=== PATIENT | female | born 1975 | race Caucasian/White ===

== ENCOUNTER 2020-02-12 17:47 | Emergency (ER) | payer MEDICARE ==
[~2020-02-12] VITALS: Ht 177.8 cm; Wt 122.7 kg
[2020-02-12 17:52] VITALS: BP 171/80; Ht 177.8 cm; Wt 122.7 kg
[2020-02-12 18:46] LABS: BASOPHILS 0.3 % (0-2); HEMOGLOBIN 8.4 g/dL (12-16); IMMATURE GRANULOCYTES 0.1 % (0-5); LYMPHOCYTES 31.7 % (15-50); MCH 20.3 pg (26.0-34.0); MCV 72.6 fL (80.0-100.0); MONOCYTES 5.8 % (2-11); NEUTROPHILS 57.1 % (40-80); PLATELET COUNT 233 10x3/uL (130-400); RBC 4.13 10x6/uL (4.00-5.40); RDW 19.2 % (11.5-14.5); WBC 7.3 10x3/uL (4.8-10.8)
[2020-02-12 18:49] LABS: MEAN PLATELET VOLUME 0 fL (7.4-10.4)
[2020-02-12 18:58] LABS: CALC OSMOLALITY 281 mosm/kg (275-300); CALCIUM 8.1 mg/dL (8.5-10.1); CARBON DIOXIDE 24.4 mmol/L (21.0-32.0); CHLORIDE - SERUM 110 mmol/L (98-107); CREATININE - SERUM 0.8 mg/dL (0.6-1.3); GLUCOSE 88 mg/dL (74-106); POTASSIUM - SERUM 3.4 mmol/L (3.5-5.1); SODIUM 142 mmol/L (136-145); UREA NITROGEN 13 mg/dL (7-18); eGFR NON AFRICAN AMERICAN 83 mL/min (90-120)
[2020-02-12 19:05] LABS: ALBUMIN 3.5 g/dL (3.4-5.0); ALKALINE PHOSPHATASE 146 U/L (30-120); ALT (SGPT) 23 U/L (10-68); AMYLASE - SERUM 25 U/L (25-115); BILIRUBIN - TOTAL 0.13 mg/dL (0.2-1.3); LIPASE 101 U/L (73-393); PROTEIN - SERUM 6.9 g/dL (6.4-8.2); TROPONIN-I < 0.017 ng/mL (0.000-0.060)
[2020-02-12] MEDS ORDERED: LYRICA75 MG PO (19:44)
[2020-02-12] MEDS ORDERED: TOPAMAX100 MG PO (19:45)
[2020-02-12] MEDS ORDERED: NEURONTIN 300300 MG PO (19:45)
[2020-02-12] MEDS ORDERED: KEPPRA750 MG PO (19:45)
[2020-02-12] MEDS ORDERED: LIPITOR80 MG PO (19:45)
[2020-02-12] MEDS ORDERED: OMEPRAZOLE40 MG PO (19:46)
[2020-02-12] MEDS ORDERED: BENTYL10 MG PO (19:46)
[2020-02-12] MEDS ORDERED: BUTALB-APAP-CA1 EACH (19:46)
[2020-02-12] MEDS ORDERED: ZOFRAN4 MG (19:46)
[2020-02-12] MEDS ORDERED: XANAX1 MG PO (19:46)
[2020-02-12] MEDS ORDERED: ZANAFLEX4 MG (19:46)
[2020-02-12] MEDS ORDERED: MAG-OX 400 MG400 MG PO (19:47)
[2020-02-12] MEDS ORDERED: METAMUCIL PACKE1 PKT PO (19:47)
[2020-02-12] MEDS ORDERED: B2 (19:47)
[2020-02-12] MEDS ORDERED: PROBIOTIC1 EAC1 (19:47)
[2020-02-12] MEDS ORDERED: VITAMIN B-625 MG PO (19:47)
[2020-02-12 21:08] LABS: BILIRUBIN NEGATIVE (NEGATIVE); KETONE NEGATIVE (NEGATIVE); NITRITE NEGATIVE (NEGATIVE); UROBILINOGEN NORMAL (NORMAL)
[2020-02-12] MEDS ORDERED: PHENERGAN25 M1 PO (21:08)
== END 2020-02-12 21:36 | disposition home or self-care (01) ==
LOC: D.ER 17:47
DX: K52.9 Noninfective gastroenteritis and colitis, unspecified (principal); K21.9 Gastro-esophageal reflux disease without esophagitis; R10.9 Unspecified abdominal pain; R11.2 Nausea with vomiting, unspecified